=== PATIENT | female | born 1950 | race Caucasian/White ===

== ENCOUNTER → 2018-02-22 07:06 | Outpatient (CLI) | payer MEDICARE, OTHER, SELFPAY ==
--- NOTE | 2018-02-22 | DI.US.S_ITS ---
PROCEDURE: US ABDOMEN COMPLETE INDICATIONS: RIGHT UPPER QUADRANT PAIN TECHNIQUE: Real-time scanning was performed of the abdominal and retroperitoneal organs, with image documentation. COMPARISON: [facility], US, ABDOMEN COMPLETE, 12/28/2007, 8:34. FINDINGS: Liver: Liver is diffusely increased in echogenicity. No focal hepatic abnormalities identified. Normal hepatic size. Gallbladder: Single gallstone. No gallbladder wall thickening. Negative sonographic Mtz sign. Biliary ducts: Intrahepatic bile ducts are non-dilated. Extrahepatic bile duct caliber measures 7.3 mm. Normal is 6-7 mm or less in diameter, or 10 mm or less post-cholecystectomy. Pancreas: Visualized portions of the pancreas are sonographically normal. Spleen: Spleen is normal in size and homogeneous in echotexture. Kidneys: Solitary left kidney prominent size measuring 14.9 cm. No hydronephrosis, nephrolithiasis or mass. Aorta: Visualized aorta is normal in caliber at less than 3 cm. Iliacs: Proximal common iliac arteries are normal in caliber at less than 2.5 cm. IVC: Intrahepatic inferior vena cava is patent. Miscellaneous: No free abdominal fluid. IMPRESSION: 1. Increased hepatic echogenicity noted possibly related to hepatic steatosis but other sources of hepatocellular disease cannot be excluded. Recommend clinical correlation. 2. Cholelithiasis without acute cholecystitis. 3. Solitary left kidney which appears grossly normal. Dictated by: Giovanni HUNTER Interpreted: Yohan Brito MD on 02/22/2018 at 10:34 Approved by: Yohan Brito M.D. on 02/22/2018 at 12:58
== END ==
PROVIDERS: Family Provider Internal Medicine Rheumatology; PCP Family Medicine; Visit Provider Family Medicine
DX: R10.11 Right upper quadrant pain (principal); K80.80 Other cholelithiasis without obstruction
CPT/HCPCS: 76700

== ENCOUNTER → 2018-08-17 11:15 | Outpatient (CLI) | payer MEDICARE, OTHER, SELFPAY ==
--- NOTE | 2018-08-17 | DI.RAD.S_ITS ---
PROCEDURE: XR FOOT RT MIN 3V INDICATIONS: RIGHT FOOT/RIGHT HEEL PAIN TECHNIQUE: 3 views of the foot were acquired. COMPARISON: [facility], CR, XR CALCANEOUS RT MIN 2V, 08/17/2018, 11:21. FINDINGS: Bones: No fractures or dislocations. No suspicious bony lesions. Moderate degenerative joint disease at the first metatarsophalangeal joint and mild degenerative disease at the first tarsometatarsal joint and multiple interphalangeal joints. Posterior and plantar calcaneal spurring. Soft tissues: No tibiotalar joint effusion. Achilles tendon appears normal. IMPRESSION: 1. Degenerative joint disease. 2. Posterior and plantar calcaneal spurring. Dictated by: Gretchen Montejo M.D. on 08/17/2018 at 14:40 Approved by: Gretchen Montejo M.D. on 08/17/2018 at 14:42
--- NOTE | 2018-08-17 | DI.RAD.S_ITS ---
PROCEDURE: XR CALCANEOUS RT MIN 2V INDICATIONS: RIGHT FOOT/RIGHT HEEL PAIN TECHNIQUE: Two views of the calcaneus were acquired. COMPARISON: None. FINDINGS: Bones: No fractures or dislocations. No suspicious bony lesions. There is posterior and plantar calcaneal spurring. Soft tissues: No suspicious calcifications. Achilles tendon appears normal. IMPRESSION: Calcaneal spurring. Dictated by: Gretchen Montejo M.D. on 08/17/2018 at 14:42 Approved by: Gretchen Montejo M.D. on 08/17/2018 at 14:43
== END ==
PROVIDERS: Family Provider Internal Medicine Rheumatology; PCP Family Medicine; Visit Provider Family Medicine
DX: M79.671 Pain in right foot (principal); M19.071 Primary osteoarthritis, right ankle and foot; M77.31 Calcaneal spur, right foot
CPT/HCPCS: 73630; 73650

== ENCOUNTER → 2019-11-30 10:56 | Outpatient (CLI) | payer MEDICARE, OTHER, SELFPAY ==
[2019-11-30 11:31] LABS: Add Manual Diff / Slide Review NO; Basophils Absolute Auto 100 /uL (0-100); Basophils Percent Auto 1.1 % (0-2); Eosinophils Absolute Auto 200 /uL (0-450); Eosinophils Percent Auto 3.3 % (2-4); Hematocrit 36.9 % (36-46); Hemoglobin 12.3 g/dL (12.0-16.0); Lymphocytes Absolute Auto 1500 /uL (1100-4500); Mean Corpuscular HGB Conc 33.5 % (30-36); Mean Corpuscular Hemoglobin 28.4 PG (26-34); Mean Corpuscular Volume 84.8 fL (80-100); Monocytes Absolute Auto 300 /uL (0-900); Monocytes Percent Auto 6.5 % (3-14); Neutrophils Absolute Auto 3100 /uL (1500-7000); Neutrophils Percent Auto 60.1 % (50-75); Platelet Count 211 X10^3/uL (150-400); Red Blood Cell Count 4.35 X10^6/uL (4.0-5.2); Red Cell Distribution Width 13.4 % (11.6-14.8); White Blood Cell Count 5.1 X10^3/uL (4.5-11.0)
[2019-11-30 12:21] LABS: Ferritin 19 ng/mL (11-264)
[2019-11-30 12:53] LABS: HEMOLYSIS < 15 (0-50); Iron 50 ug/dL (37-170)
[2019-11-30 13:04] LABS: Percent Iron Saturation 14 % (15-50); Total Iron Binding Capacity 345 ug/dL (265-497); Transferrin 278 mg/dL (206-381)
== END ==
PROVIDERS: Family Provider Internal Medicine Rheumatology; PCP Internal Medicine; Referring Provider Internal Medicine; Visit Provider Internal Medicine
DX: D50.9 Iron deficiency anemia, unspecified (principal)
CPT/HCPCS: 36415; 82728; 83540; 83550; 85025

== ENCOUNTER → 2020-01-08 10:15 | Outpatient (CLI) | payer MEDICARE, OTHER, SELFPAY ==
[2020-01-08 10:55] LABS: Add Manual Diff / Slide Review NO; Basophils Absolute Auto 0 /uL (0-100); Basophils Percent Auto 0.8 % (0-2); Eosinophils Absolute Auto 200 /uL (0-450); Eosinophils Percent Auto 3.5 % (2-4); Hematocrit 38.1 % (36-46); Hemoglobin 12.5 g/dL (12.0-16.0); Lymphocytes Absolute Auto 1300 /uL (1100-4500); Lymphocytes Percent Auto 24.6 % (25-40); Mean Corpuscular HGB Conc 32.9 % (30-36); Mean Corpuscular Volume 84.9 fL (80-100); Monocytes Absolute Auto 300 /uL (0-900); Monocytes Percent Auto 6.4 % (3-14); Neutrophils Absolute Auto 3500 /uL (1500-7000); Neutrophils Percent Auto 64.7 % (50-75); Platelet Count 213 X10^3/uL (150-400); Red Blood Cell Count 4.49 X10^6/uL (4.0-5.2); Red Cell Distribution Width 13.6 % (11.6-14.8); White Blood Cell Count 5.4 X10^3/uL (4.5-11.0)
[2020-01-08 11:37] LABS: HEMOLYSIS < 15 (0-50); Iron 55 ug/dL (37-170)
[2020-01-08 11:39] LABS: Lactate Dehydrogenase 379 U/L (313-618)
[2020-01-08 11:44] LABS: Reticulocyte Count, Percent 1.9 % (1.06-2.63)
[2020-01-08 11:47] LABS: Percent Iron Saturation 16 % (15-50); Total Iron Binding Capacity 351 ug/dL (265-497); Transferrin 288 mg/dL (206-381)
[2020-01-08 12:13] LABS: Ferritin 24 ng/mL (11-264)
[2020-01-08 13:07] LABS: Sample 1 Time 1021
[2020-01-08 13:08] LABS: Occult Blood 1 Positive (Negative)
[2020-01-08 13:14] LABS: Appearance Urine UA CLEAR; Bilirubin Urine UA NEGATIVE (NEGATIVE); Color Urine UA YELLOW; Glucose Urine UA NEGATIVE (Negative); Ketones Urine UA NEGATIVE (NEGATIVE); Leukocyte Esterase Urine UA NEGATIVE (NEGATIVE); Nitrite Urine UA NEGATIVE (Negative); Occult Blood Urine UA TRACE-LYSED (Negative); Protein Urine UA NEGATIVE (Negative); Urobilinogen Urine UA 0.2 E.U./dL (0.2)
[2020-01-08 13:26] LABS: pH Urine UA 5.5 (4.5-8.0)
[2020-01-08 13:36] LABS: Bacteria Urine Moderate (10-30); Culture Indicated Urine Specimen Cultured; Mucus Urine 2+ (Negative); RBC Urine 0-1/HPF (0-5/HPF); Squamous Epithelial Cell Urine 1-5 /HPF (0-5/HPF); WBC Urine 1-5/HPF (0-5/HPF)
[2020-01-09 14:38] LABS: Cold Agglutinins Negative (Neg <1:32); Tissue Transglutaminase IgA <2 U/mL (0-3)
== END ==
PROVIDERS: Family Provider Internal Medicine Rheumatology; PCP Internal Medicine; Referring Provider Internal Medicine; Visit Provider Internal Medicine
DX: D64.9 Anemia, unspecified (principal); E61.1 Iron deficiency
CPT/HCPCS: 36415; 81001; 82270; 82728; 83516; 83540; 83550; 83615; 85025; 85045; 86157; 87086

== ENCOUNTER → 2020-01-12 18:46 | Outpatient (ROUT) | payer MEDICARE, OTHER, SELFPAY ==
[2020-01-12 18:49] LABS: RBC Urine None Seen (0-5/HPF)
[2020-01-12 19:11] LABS: Appearance Urine UA CLEAR; Bilirubin Urine UA NEGATIVE (NEGATIVE); Color Urine UA YELLOW; Glucose Urine UA NEGATIVE (Negative); Ketones Urine UA NEGATIVE (NEGATIVE); Leukocyte Esterase Urine UA NEGATIVE (NEGATIVE); Nitrite Urine UA NEGATIVE (Negative); Occult Blood Urine UA NEGATIVE (Negative); Protein Urine UA NEGATIVE (Negative); Specific Gravity Urine UA 1.025 (1.000-1.035); Urobilinogen Urine UA 0.2 E.U./dL (0.2)
[2020-01-12 19:35] LABS: Bacteria Urine Few (2-10); Squamous Epithelial Cell Urine 1-5 /HPF (0-5/HPF); WBC Urine 0-1/HPF (0-5/HPF)
[2020-01-12 19:36] LABS: Culture Indicated Urine Cult Not Indicated
== END ==
PROVIDERS: Family Provider Internal Medicine Rheumatology; PCP Internal Medicine; Visit Provider Internal Medicine
DX: E61.1 Iron deficiency (principal)
CPT/HCPCS: 81001

== ENCOUNTER → 2020-01-31 12:54 | Outpatient (CLI) | payer MEDICARE, OTHER, SELFPAY ==
--- NOTE | 2020-01-31 12:57 | DIET.PN ---
Dietary Progress Note Assessment: 70y F referred to nutrition for borderline iron deficiency anemia, HLD, HTG, and fatty liver interested in improving these conditions and in some weight management help. Pt on Matilde- has several autoimmune conditions. To address anemia, pt switched from ferrous sulfate to gluconate for easier GI tolerance and says numbers are improving (do not have lab values). Follows [employer] and gives self around 30 points per day. Pt reports easily being able to lose 5# but then plateaus. Usual Day: wakes 8am, feels rested 4oz [place] Lite or lite OJ Breakfast (9am): fair life fat free milk c purchased [employer] Overnight Oats (10g sugar, 49g CHO) lunch (noon): half sandwich- boars head lunch meat ham or roast beef, arevalo, uses [address] for [employer] [place] white bread, chips 5pm Dinner: meat-pork, steak, various potatoes or starch, green veggie or salad snacks after dinner: trail mix, cookies, ice cream, sugary things goes to bed between 10-midnight difficulty with snacking after 6pm is now home all the time when during career was usually out of town. This causes some issues because if she wants ice cream, he will go to store to purchase, he is regimented in his eating so she feels she needs to eat meals with him even if she is not hungry. Pt does Jazzercise 60 min once or twice per week, planning to do 3x/w now that her favorite teacher is doing virtual classes. HT: 5'8 WT:213#, 200-215# for past 5-6y, would like to get to 180-200# range. BMI: 32.4 Labs: TC 196, HDL 62, LDL 134 Nutrition Diagnosis: 1. inadequate intake mineral (iron) r/t food and nutrition knowledge deficit aeb pt referred by PCP for borderline iron deficiency anemia, pt unaware of high iron foods besides beef. 2. altered nutrition related laboratory values r/t obesity and physical inactivity aeb HLD (LDL 134), HTG 238, BMI 32.4, pt food recall shows low intake F/V, soluble fiber, overconsumption of carbs and added sugar and average of 60min physical activity per week. Interventions: 1. To address altered laboratory values, educated pt on plate balance focusing on increasing F/V, soluble fiber, and restricting CHO to 30-40g/meal and added sugar to 20g/d. 2. To address difficulty c weight loss and eating when not hungry, educated pt on hunger scale and instructed pt to increase awareness of hunger/fullness, to eat when 3 and stop when 7 or 8. 3. To address high triglycerides and weight management, reiterated importance of carb and sugar controlled diet. 4. To address borderline anemia, gave pt handout of iron foods and a goal of 11g/d in food form. Pt will use form to log iron intake. 5. To improve HLD, fatty liver, and weight management, encouraged pt to increase frequency and intensity of physical activity. Pt will consider more days per week of exercise class and starting to take walks c her . EER: 30-40g CHO per meal, 20g added sugar per day Monitoring/Evaluations: f/u in 6w to assess progress and problem solve barriers.
== END ==
PROVIDERS: Family Provider Internal Medicine Rheumatology; PCP Internal Medicine; Referring Provider Internal Medicine; Visit Provider Internal Medicine
DX: D50.9 Iron deficiency anemia, unspecified (principal); E78.5 Hyperlipidemia, unspecified; E78.1 Pure hyperglyceridemia; K76.0 Fatty (change of) liver, not elsewhere classified; Z71.3 Dietary counseling and surveillance
CPT/HCPCS: 97802

== ENCOUNTER → 2020-04-04 16:24 | Outpatient (CLI) | payer MEDICARE, SELFPAY ==
[2020-04-04] MEDS: COVID-19 VACC #1, MRNA(MOD) 100 MCG/0.5 ML VIAL IM (16:35)
== END ==
PROVIDERS: Family Provider Internal Medicine Rheumatology; PCP Internal Medicine; Visit Provider Internal Medicine
DX: Z23 Encounter for immunization (principal)
CPT/HCPCS: 0011A; 91301

== ENCOUNTER → 2020-05-01 15:27 | Outpatient (CLI) | payer MEDICARE, OTHER, SELFPAY ==
[2020-05-01] MEDS: COVID-19 VACC #2, MRNA(MOD) 100 MCG/0.5 ML VIAL IM (15:39)
== END ==
PROVIDERS: Family Provider Internal Medicine Rheumatology; PCP Internal Medicine; Visit Provider Internal Medicine
DX: Z23 Encounter for immunization (principal)
CPT/HCPCS: 0012A; 91301

== ENCOUNTER → 2020-07-26 11:36 | Outpatient (CLI) | payer MEDICARE, OTHER, SELFPAY ==
--- NOTE | 2020-07-26 | DI.RAD.S_ITS ---
PROCEDURE: XR RIBS LT MIN 3V W CXR1V INDICATIONS: Pleurodynia TECHNIQUE: 2 views of the left ribs were acquired, along with a single view chest. COMPARISON: None. FINDINGS: Surgical changes and devices: None. Bones and chest wall: Right lateral 6th and 7th rib fractures. Lungs and pleura: Hazy and interstitial ill-defined opacities present without focal consolidation. No pleural effusions or pneumothorax. This could reflect scattered atelectasis and or chronic interstitial changes. Mediastinum: Mediastinal contours appear normal. Heart size is normal. IMPRESSION: Right lateral 6th and 7th rib fractures Scattered subsegmental atelectasis and/or scarring. No focal consolidation. Dictated by: Matthew Matias M.D. on 07/26/2020 at 13:54 Approved by: Matthew Matias M.D. on 07/26/2020 at 13:57
== END ==
PROVIDERS: Family Provider Internal Medicine Rheumatology; PCP Physician Assistant; Referring Provider Physician Assistant; Visit Provider Physician Assistant
DX: R07.81 Pleurodynia (principal); S22.41XA Multiple fractures of ribs, right side, initial encounter for closed fracture
CPT/HCPCS: 71101

== ENCOUNTER 2021-05-25 16:39 | Emergency (ER) | payer MEDICARE, OTHER, SELFPAY ==
[2021-05-25] VITALS (12 sets, daily range): BP systolic 115–156; BP diastolic 76–94; PULSE 86–114; RESP 12–26; TEMP 36.6; O2SAT 95–98; BMI 30.1
--- NOTE | 2021-05-25 17:09 | DI.RAD.S_ITS ---
PROCEDURE: XR ACUTE ABDOMEN SERIES INDICATIONS: swallowed pill cam/increased abd pain TECHNIQUE: One view chest and two views of the abdomen were acquired. COMPARISON: None. FINDINGS: Surgical changes and devices: None. Chest: Lungs are clear. Heart size is normal. No pleural effusions. No pneumoperitoneum. Abdomen: Bowel gas pattern is normal. There is a pill cam seen within the left lower quadrant of the abdomen. No suspicious calcifications. Visualized solid organ contours appear normal. Bones: No suspicious bony lesions. Age-appropriate bony degenerative changes are seen. Mild levoconvex scoliotic curvature is noted. IMPRESSION: Nonobstructive bowel gas pattern. Pill cam seen. Dictated by: Terence Auguste M.D. on 05/25/2021 at 16:59 Approved by: Terence Auguste M.D. on 05/25/2021 at 17:00
[2021-05-25 17:30] LABS: Add Manual Diff / Slide Review NO; Basophils Absolute Auto 0 /uL (0-100); Basophils Percent Auto 0.5 % (0-2); Eosinophils Absolute Auto 100 /uL (0-450); Eosinophils Percent Auto 1.5 % (2-4); Hematocrit 38.9 % (36-46); Lymphocytes Absolute Auto 900 /uL (1100-4500); Lymphocytes Percent Auto 9.3 % (25-40); Mean Corpuscular HGB Conc 33.3 % (30-36); Mean Corpuscular Hemoglobin 27.6 PG (26-34); Mean Corpuscular Volume 82.9 fL (80-100); Monocytes Absolute Auto 500 /uL (0-900); Monocytes Percent Auto 5.1 % (3-14); Neutrophils Absolute Auto 8000 /uL (1500-7000); Neutrophils Percent Auto 83.6 % (50-75); Platelet Count 259 X10^3/uL (150-400); Red Blood Cell Count 4.69 X10^6/uL (4.0-5.2); Red Cell Distribution Width 13.2 % (11.6-14.8); White Blood Cell Count 9.5 X10^3/uL (4.5-11.0)
[2021-05-25 17:37] LABS: INR 0.9 (0.9-1.3); Prothrombin Time 10.6 SECONDS (10.1-12.7)
[2021-05-25 17:40] LABS: PTT Partial Thromboplastin Tim 32 SECONDS (26.4-36.2)
[2021-05-25 17:41] LABS: Alanine Aminotransferase 15 IU/L (<35); Albumin 3.8 g/dL (3.5-5.0); Albumin Globulin Ratio 1.2 (1.0-2.8); Alkaline Phosphatase 78 U/L (38-126); Aspartate Aminotransferase 30 IU/L (14-36); BUN Creatinine Ratio 14.3 (6-22); Bilirubin Total 0.3 mg/dL (0.2-1.3); Blood Urea Nitrogen 14 mg/dL (7-17); Calcium 8.7 mg/dL (8.4-10.2); Carbon Dioxide 26 mmol/L (22-32); Chloride 107 mmol/L (98-107); Estimated Glomerular Filt Rate 56.3 mL/min (>60); Globulin 3.1 g/dL (1.7-4.1); Glucose 129 mg/dL (80-110); HEMOLYSIS 17 (0-50); Lipase 52 U/L (23-300); Potassium 3.6 mmol/L (3.4-5.1); Sodium 138 mmol/L (137-145); Total Protein 6.9 g/dL (6.3-8.2)
--- NOTE | 2021-05-25 22:12 | ED_ITS ---
HPI - Abdominal Pain General Chief Complaint: Abdominal Pain Stated Complaint: Pill Camera, Severe Abd Pain Time Seen by Provider: 05/25/21 22:12 Source: patient Mode of arrival: Ambulatory History of Present Illness HPI narrative: Patient is a 71-year-old female with a history of ulcerative colitis and iron deficiency anemia presenting today with abdominal cramping. She says she took a laxative and swallowed a pill camera 4 days ago. She did this because of her anemia. She says that when she takes iron she is not anemic however if they cut back her iron she quickly becomes anemic. She has been having intense cramping is moving throughout her abdomen over the last couple of days worse today. She denies any fever nausea or vomiting. She has no chest pain or palpitations. She called her GI doctor today who recommended she come to the ED for further evaluation. She has not had any bloody stools. Stool is now becoming formed. Related Data Home Medications Medication Instructions Recorded Confirmed adalimumab 40 mg/0.4 mL 40 mg SUBCUT QWEEK 09/19/20 09/19/20 subcutaneous pen kit (Humira(CF) Pen) calcium carbonate 600 mg-vitamin 1 tab PO DAILY 09/19/20 09/19/20 D3 20 mcg (800 unit) tablet (Caltrate with Vitamin D3) cholecalciferol (vitamin D3) 25 25 mcg PO DAILY 09/19/20 09/19/20 mcg (1,000 unit) tablet estradiol 0.025 mg/24 hr weekly 1 patch TRANSDERMAL QWEEK 09/19/20 09/19/20 transdermal patch (Climara) loratadine 10 mg tablet (Allergy 10 mg PO DAILY 09/19/20 09/19/20 Relief (loratadine)) sertraline 100 mg tablet 100 mg PO DAILY 09/19/20 09/19/20 Previous Rx's Medication Instructions Recorded estradiol (Estrace) 1 g VAGINAL .COMPLEX #42.5 g 10/01/20 Allergies Allergy/AdvReac Type Severity Reaction Status Date / Time cefprozil AdvReac Hives Verified 09/19/20 08:58 Review of Systems Review of Systems Narrative: GENERAL: Denies chills, fatigue, malaise, fever, sweats, travel HEENT: Denies sinus pain, ear pain, sore throat, difficulty swallowing, neck pain RESPIRATORY: Denies dyspnea, cough, wheezing, hemoptysis, sputum. CARDIOVASCULAR: Denies chest pain, palpitations, orthopnea, edema GASTROINTESTINAL: See HPI : Denies dysuria, frequency, incontinence, hematuria, urinary retention, flank pain. MUSCULOSKELETAL: Denies weakness, joint pain, or bony pain SKIN: No rash, no erythema, no pruritus NEUROLOGIC: Denies weakness, dizziness, headache, numbness, change in speech, confusion PSYCHIATRIC: No concerning psychosocial issues. 12 point review of systems is negative except for those stated above and HPI Patient History Medical History (Updated 05/25/21 @ 22:38 by Alexandria Cerna DO) Bicornuate uterus Surgical History (Updated 09/19/20 @ 16:53 by Geraldine Lambert MD) History of hysterectomy S/P lumpectomy of breast Social History Smoking Status: Former smoker Smoking Status: Former smoker Substance Use Type: does not use Exam Initial Vital Signs Initial Vital Signs: Vital Signs Temperature 97.9 F 05/25/21 16:57 Pulse Rate 110 H 05/25/21 16:57 Respiratory Rate 18 05/25/21 16:57 Blood Pressure 121/82 05/25/21 16:57 Pulse Oximetry 97 05/25/21 16:57 GENERAL: Alert pleasant 71-year-old female appears slightly uncomfortable. HEENT: Head atraumatic,EOMI, pupils reactive, face symmetric, [moist] mucous membranes CARDIOVASCULAR: Regular rate and rhythm without murmurs, rubs or gallops. RESPIRATORY: Breath sounds equal bilaterally, no wheezes rales or rhonchi. ABDOMEN: Soft, nontender. Normoactive bowel sounds all 4 quadrants. No gu arding or rebound. EXTREMITIES: Normal range of motion, no clubbing or edema. Neurovascularly intact NEUROLOGICAL: Alert and oriented x4.Normal gait and speech. SKIN: Warm, dry, no laceration, no petechiae, no rashes or lesions. Course Orders Ordered: ED Orders 05/25/21 22:18 Urine Culture Stat Urine Microscopic Stat Discontinued Medications Morphine Sulfate (Morphine 2 Mg/Ml Inj) 2 mg IV NOW ONE Stop: 05/25/21 22:32 Last Admin: 05/25/21 22:38 Dose: 2 mg Documented by: FABIÁN Vital Signs Vital signs: Vital Signs - 8 hr 05/25/21 19:43 05/25/21 19:44 05/25/21 19:46 Pulse Rate 112 H 114 H Respiratory Rate 16 Blood Pressure 122/82 122/82 Pulse Oximetry 98 98 05/25/21 19:59 05/25/21 20:00 05/25/21 20:30 Pulse Rate 106 H 109 H 102 H Respiratory Rate 14 Blood Pressure 125/84 115/81 Pulse Oximetry 98 98 96 05/25/21 21:00 05/25/21 21:30 05/25/21 22:00 Pulse Rate 100 H 100 H 99 H Respiratory Rate 26 H 12 14 Blood Pressure 116/77 126/76 120/81 Pulse Oximetry 95 96 96 05/25/21 22:30 05/25/21 22:59 Pulse Rate 98 H 86 Respiratory Rate 24 16 Blood Pressure 156/94 H 156/94 H Pulse Oximetry 98 98 MDM - Abdominal Pain Lab Data Result diagrams: 05/25/21 17:22 05/25/21 17:22 Labs: Lab Results 05/25/21 05/25/21 05/25/21 Range/Units 17:22 17:22 17:22 WBC 9.5 (4.5-11.0) X10^3/uL RBC 4.69 (4.0-5.2) X10^6/uL Hgb 13.0 (12.0-16.0) g/dL Hct 38.9 (36-46) % MCV 82.9 (80-100) fL MCH 27.6 (26-34) PG MCHC 33.3 (30-36) % RDW 13.2 (11.6-14.8) % Plt Count 259 (150-400) X10^3/uL Neut % (Auto) 83.6 H (50-75) % Lymph % (Auto) 9.3 L (25-40) % [place] % (Auto) 5.1 (3-14) % Eos % (Auto) 1.5 L (2-4) % Baso % (Auto) 0.5 (0-2) % Neut # (Auto) 8000 H (6367-6152) /uL Lymph # (Auto) 900 L (5286-9265) /uL [place] # (Auto) 500 (0-900) /uL Eos # (Auto) 100 (0-450) /uL Baso # (Auto) 0 (0-100) /uL PT 10.6 (10.1-12.7) SECONDS INR 0.9 (0.9-1.3) APTT 32 (26.4-36.2) SECONDS Sodium 138 (137-145) mmol/L Potassium 3.6 (3.4-5.1) mmol/L Chloride 107 (98-107) mmol/L Carbon Dioxide 26 (22-32) mmol/L BUN 14 (7-17) mg/dL Creatinine 0.98 (0.52-1.04) mg/dL Estimated GFR 56.3 L (>60) mL/min BUN/Creatinine Ratio 14.3 (6-22) Glucose 129 H (80-110) mg/dL Calcium 8.7 (8.4-10.2) mg/dL Total Bilirubin 0.3 (0.2-1.3) mg/dL AST 30 (14-36) IU/L ALT 15 (<35) IU/L Alkaline Phosphatase 78 (38-126) U/L Total Protein 6.9 (6.3-8.2) g/dL Albumin 3.8 (3.5-5.0) g/dL Globulin 3.1 (1.7-4.1) g/dL Albumin/Globulin Ratio 1.2 (1.0-2.8) Lipase 52 (23-300) U/L Urine RBC (0-5/HPF) Urine WBC (0-5/HPF) Ur Squamous Epith Cells (0-5/HPF) Calcium Oxalate Crystal Urine Bacteria (None) Urine Mucus (Negative) Ur Culture Indicated? 05/25/21 Range/Units 22:18 WBC (4.5-11.0) X10^3/uL RBC (4.0-5.2) X10^6/uL Hgb (12.0-16.0) g/dL Hct (36-46) % MCV (80-100) fL MCH (26-34) PG MCHC (30-36) % RDW (11.6-14.8) % Plt Count (150-400) X10^3/uL Neut % (Auto) (50-75) % Lymph % (Auto) (25-40) % [place] % (Auto) (3-14) % Eos % (Auto) (2-4) % Baso % (Auto) (0-2) % Neut # (Auto) (9224-0753) /uL Lymph # (Auto) (3941-3479) /uL [place] # (Auto) (0-900) /uL Eos # (Auto) (0-450) /uL Baso # (Auto) (0-100) /uL PT (10.1-12.7) SECONDS INR (0.9-1.3) APTT (26.4-36.2) SECONDS Sodium (137-145) mmol/L Potassium (3.4-5.1) mmol/L Chloride (98-107) mmol/L Carbon Dioxide (22-32) mmol/L BUN (7-17) mg/dL Creatinine (0.52-1.04) mg/dL Estimated GFR (>60) mL/min BUN/Creatinine Ratio (6-22) Glucose (80-110) mg/dL Calcium (8.4-10.2) mg/dL Total Bilirubin (0.2-1.3) mg/dL AST (14-36) IU/L ALT (<35) IU/L Alkaline Phosphatase (38-126) U/L Total Protein (6.3-8.2) g/dL Albumin (3.5-5.0) g/dL Globulin (1.7-4.1) g/dL Albumin/Globulin Ratio (1.0-2.8) Lipase (23-300) U/L Urine RBC 0-1/hpf (0-5/HPF) Urine WBC 0-1/hpf (0-5/HPF) Ur Squamous Epith Cells 1-5 /hpf (0-5/HPF) Calcium Oxalate Crystal Moderate H Urine Bacteria Moderate (10-30) H (None) Urine Mucus 2+ H (Negative) Ur Culture Indicated? Specimen cultured Point of care testing: Urine Dip Bedside Urine Glucose Negative Bedside Urine Bilirubin - Negative Bedside Urine Ketone - Negative Urine Specific [place] 1.03 Bedside Urine Occult Blood - Negative Bedside Urine pH 5.5 Bedside Urine Protein +/- 15 Bedside Urine Urobilinogen - Negative Bedside Urine Nitrite - Negative Bedside Urine Leukocytes - Negative Esterase Imaging Data Abdominal x-ray: Radiologist's Impression: PROCEDURE:? XR ACUTE ABDOMEN SERIES ? INDICATIONS:? swallowed pill cam/increased abd pain ? TECHNIQUE:? One view chest and two views of the abdomen were acquired.? ? COMPARISON:? None. ? FINDINGS:? ? Surgical changes and devices:? None.? ? Chest:? Lungs are clear.? Heart size is normal.? No pleural effusions.? No pneumoperitoneum.? ? Abdomen:? Bowel gas pattern is normal.? There is a pill cam seen within the left lower quadrant of the abdomen.? No suspicious calcifications.? Visualized solid organ contours appear normal.? ? Bones:? No suspicious bony lesions.? Age-appropriate bony degenerative changes are seen.? Mild levoconvex scoliotic curvature is noted.? IMPRESSION:? Nonobstructive bowel gas pattern. ? Pill cam seen. ? Dictated by: Terence Auguste M.D. on 05/25/2021 at 16:59 ? ? Approved by: Terence Auguste M.D. on 05/25/2021 at 17:00 ? MDM Narrative Medical decision making narrative: Completion or blood work overall appears well. X-ray does confirm fill in the left lower quadrant. Does not appear that is stuck in the ileocecal valve. I expect that she will pass it here shortly. It is also probably what is causing her intense pain. She does have some bacteria in her urine but no signs or symptoms of UTI. At this time weight is for urine culture to return. Patient is feeling much better after morphine. She overall appears well. Discharge Plan Departure Patient Disposition: Home Clinical Impression: Abdominal pain Instructions: Acute Abdominal Pain Activity Restrictions/Additional Instructions: *You have been diagnosed with abdominal pain *What to do: At this time I think her cramping is due to the pill. It is on the left side I think her get a Pap in the next 24 hours. You were given a small dose of morphine here in the emergency department as it can cause constipation hopefully it does not. *Continue to take medications as directed *Follow up with your primary care provider in 2-3 days or call [phone] Follow-up with your GI doctor as scheduled *Return to ER if you should have fever persistent vomiting increasing pain or any new, worsening or concerning symptoms Prescriptions: No Action estradiol [Estrace] 0.01 % (0.1 mg/gram) cream 1 g vaginal .COMPLEX Qty: 42.5 3RF Rx Instructions: Apply 1 gm vaginal and small amount to external vagina at bedtime for 14 nights, then 2 times weekly. Humira(CF) Pen 40 mg/0.4 mL pen injector kit 40 mg SUBCUT QWEEK 0RF calcium carbonate-vitamin D3 [Caltrate with Vitamin D3] 600 mg(1,500mg) -800 unit tablet 1 tab PO DAILY 0RF loratadine [Allergy Relief (loratadine)] 10 mg tablet 10 mg PO DAILY 0RF sertraline 100 mg tablet 100 mg PO DAILY 0RF cholecalciferol (vitamin D3) 25 mcg (1,000 unit) tablet 25 mcg PO DAILY 0RF estradiol [Climara] 0.025 mg/24 hr patch weekly 1 patch transdermal QWEEK 0RF Referrals: Darron Farah MD [Primary Care Provider] -
[2021-05-25] MEDS: MORPHINE 2 MG/ML INJ IV (22:38)
[2021-05-25 22:45] LABS: Bacteria Urine Moderate (10-30); Calcium Oxalate Crystals Urine Moderate; RBC Urine 0-1/HPF (0-5/HPF); Squamous Epithelial Cell Urine 1-5 /HPF (0-5/HPF); WBC Urine 0-1/HPF (0-5/HPF)
[2021-05-25 22:46] LABS: Culture Indicated Urine Specimen Cultured; Mucus Urine 2+ (Negative)
== END 2021-05-25 23:37 | disposition home or self-care (01) ==
PROVIDERS: Emergency Medicine; Emergency Provider Emergency Medicine; Family Provider Internal Medicine Rheumatology; PCP Internal Medicine
DX: R10.9 Unspecified abdominal pain (principal); Z87.891 Personal history of nicotine dependence
CPT/HCPCS: 36415; 74022; 80053; 81003; 81015; 83690; 85025; 85610; 85730; 87086; 99284; J2270

== ENCOUNTER → 2022-01-24 14:04 | Outpatient (CLI) | payer MEDICARE, OTHER, SELFPAY ==
--- NOTE | 2022-01-24 14:05 | DI.RAD.S_ITS ---
PROCEDURE: XR WRIST RT MIN 3V INDICATIONS: Right wrist [id number] tenderness TECHNIQUE: 4 views of the wrist were acquired. COMPARISON: None. FINDINGS: Bones: Oblique fracture through the radial styloid with intra-articular involvement at the radiocarpal joint Scaphoid view: Unremarkable Soft tissues: No suspicious soft tissue calcifications. IMPRESSION: Intra-articular distal radial styloid fracture Approved by: Dank Payne M.D. on 01/24/2022 at 14:05
== END ==
PROVIDERS: Family Provider Internal Medicine Rheumatology; PCP Internal Medicine; Referring Provider Registered Nurse; Visit Provider Registered Nurse
DX: S52.571A Other intraarticular fracture of lower end of right radius, initial encounter for closed fracture (principal); M25.531 Pain in right wrist; W19.XXXA Unspecified fall, initial encounter
CPT/HCPCS: 73110

== ENCOUNTER → 2022-06-26 10:17 | Outpatient (CLI) | payer MEDICARE, OTHER, SELFPAY ==
[2022-06-26 11:29] LABS: Add Manual Diff / Slide Review NO; Basophils Absolute Auto 0 /uL (0-100); Basophils Percent Auto 0.3 % (0-2); Eosinophils Absolute Auto 100 /uL (0-450); Eosinophils Percent Auto 1.7 % (2-4); Hematocrit 38.6 % (36-46); Hemoglobin 13.3 g/dL (12.0-16.0); Lymphocytes Absolute Auto 1400 /uL (1100-4500); Lymphocytes Percent Auto 26.2 % (25-40); Mean Corpuscular HGB Conc 34.3 % (30-36); Mean Corpuscular Hemoglobin 29.2 PG (26-34); Mean Corpuscular Volume 85.2 fL (80-100); Monocytes Absolute Auto 300 /uL (0-900); Neutrophils Absolute Auto 3500 /uL (1500-7000); Neutrophils Percent Auto 65.8 % (50-75); Platelet Count 199 X10^3/uL (150-400); Red Blood Cell Count 4.53 X10^6/uL (4.0-5.2); Red Cell Distribution Width 13.5 % (11.6-14.8); White Blood Cell Count 5.3 X10^3/uL (4.5-11.0)
[2022-06-26 12:09] LABS: Alanine Aminotransferase 25 IU/L (<35); Albumin 3.7 g/dL (3.5-5.0); Albumin Globulin Ratio 1.3 (1.0-2.8); Alkaline Phosphatase 85 U/L (38-126); Aspartate Aminotransferase 25 IU/L (14-36); BUN Creatinine Ratio 20.5 (6-22); Bilirubin Total 0.4 mg/dL (0.2-1.3); Blood Urea Nitrogen 16 mg/dL (7-17); C-Reactive Protein Quant 0.7 mg/dL (<1.0); Calcium 8.4 mg/dL (8.4-10.2); Carbon Dioxide 26 mmol/L (22-32); Chloride 104 mmol/L (98-107); Estimated Glomerular Filt Rate > 60 mL/min (>60); Globulin 2.9 g/dL (1.7-4.1); Glucose 100 mg/dL (80-110); HEMOLYSIS < 15 (0-50); Potassium 3.8 mmol/L (3.4-5.1); Sodium 136 mmol/L (137-145); Total Protein 6.6 g/dL (6.3-8.2)
[2022-06-30 14:36] LABS: Calprotectin, Stool 81 ug/g (0-120)
== END ==
PROVIDERS: Family Provider Internal Medicine Rheumatology; PCP Physician Assistant; Referring Provider Internal Medicine Gastroenterology; Visit Provider Internal Medicine Gastroenterology
DX: K50.00 Crohn's disease of small intestine without complications (principal); R10.31 Right lower quadrant pain
CPT/HCPCS: 36415; 80053; 83993; 85025; 86140

== ENCOUNTER → 2023-01-01 09:23 | Outpatient (CLI) | payer MEDICARE, OTHER, SELFPAY ==
--- NOTE | 2023-01-01 | DI.RAD.S_ITS ---
PROCEDURE: XR CHEST 2V INDICATIONS: diminished breath sounds posterior right TECHNIQUE: 2 views of the chest were acquired. COMPARISON: None. FINDINGS: Surgical changes and devices: None. Lungs and pleura: Lungs are clear. No pleural effusions or pneumothorax. Mediastinum: Mediastinal contours are normal. Heart size is normal. Bones and chest wall: No suspicious bony abnormalities. Soft tissues appear unremarkable. IMPRESSION: No acute cardiopulmonary abnormality is seen. Dictated by: Jairo Bose M.D. on 01/01/2023 at 11:59 Approved by: Jairo Bose M.D. on 01/01/2023 at 11:59
== END ==
PROVIDERS: Family Provider Internal Medicine Rheumatology; PCP Physician Assistant; Referring Provider Physician Assistant; Visit Provider Physician Assistant
DX: R06.89 Other abnormalities of breathing (principal)
CPT/HCPCS: 71046

== ENCOUNTER → 2023-05-05 15:01 | Outpatient (CLI) | payer MEDICARE, OTHER, SELFPAY | PROVIDERS: Family Provider Internal Medicine Rheumatology; PCP Physician Assistant; Visit Provider Nurse Practitioner Family | DX: T14.8XXA Other injury of unspecified body region, initial encounter (principal) | CPT/HCPCS: 87070; 87075; 87147; 87205 ==

== ENCOUNTER → 2023-06-15 15:13 | Outpatient (CLI) | payer MEDICARE, OTHER, SELFPAY ==
--- NOTE | 2023-06-15 | DI.RAD.S_ITS ---
PROCEDURE: XR CHEST 2V INDICATIONS: COUGH TECHNIQUE: 2 views of the chest were acquired. COMPARISON: [facility], CR, XR CHEST 2V, 01/01/2023, 9:50. FINDINGS: Surgical changes and devices: None. Lungs and pleura: Lungs are clear. No pleural effusions or pneumothorax. Mediastinum: Mediastinal contours are normal. Heart size is normal. Bones and chest wall: No suspicious bony abnormalities. Soft tissues appear unremarkable. IMPRESSION: No acute cardiopulmonary abnormality is seen. Approved by: Dank Payne M.D. on 06/15/2023 at 18:28
== END ==
PROVIDERS: Family Provider Internal Medicine Rheumatology; PCP Physician Assistant; Referring Provider Physician Assistant; Visit Provider Physician Assistant
DX: R05.9 Cough, unspecified (principal)
CPT/HCPCS: 71046